=== PATIENT | female | born 1945 | race Caucasian/White ===

== ENCOUNTER 2018-03-19 14:22 | Emergency (ER) | payer OTHER, MEDICARE ==
[2018-03-19 15:00] LABS: ABSOLUTE EOSINOPHILS # (AUTO) 0.2 10^3/uL (0.0-0.6); ABSOLUTE LYMPHOCYTES (AUTO) 1.7 10^3/uL (0.5-4.7); ABSOLUTE MONOCYTES (AUTO) 0.3 10^3/uL (0.1-1.4); ABSOLUTE NEUT (AUTO) 2.7 10^3/uL (1.7-8.2); BASOPHILS % (AUTO) 0.6 % (0-2); EOSINOPHILS % (AUTO) 4.7 % (0-6); HEMATOCRIT 36.9 % (36.0-47.0); HEMOGLOBIN 12.5 g/dL (12.0-15.5); LYMPHOCYTES % (AUTO) 33.3 % (13-45); MEAN CORPUSCULAR HEMOGLOBIN 31.5 pg (27.0-33.4); MEAN CORPUSCULAR HGB CONC 33.9 g/dL (32.0-36.0); MEAN CORPUSCULAR VOLUME 93 fl (80-97); MONOCYTES % (AUTO) 6.8 % (3-13); PLATELET COUNT 175 10^3/uL (150-450); RED BLOOD COUNT 3.98 10^6/uL (3.72-5.28); RED CELL DISTRIBUTION WIDTH 15.6 % (11.5-14.0); SEGMENTED NEUTROPHILS % (AUTO) 54.6 % (42-78); TOTAL CELLS COUNTED % (AUTO) 100 %
--- NOTE | 2018-03-19 15:45 | RADIOLOGY REPORT (SQ) ---
EXAM DESCRIPTION: CHEST SINGLE VIEW COMPLETED DATE/TIME: 03/19/2018 3:13 pm REASON FOR STUDY: sob COMPARISON: None. NUMBER OF VIEWS: One view. TECHNIQUE: Single frontal radiographic view of the chest acquired. LIMITATIONS: None. FINDINGS: LUNGS AND PLEURA: No opacities, masses or pneumothorax. No pleural effusion. MEDIASTINUM AND HILAR STRUCTURES: No masses. Contour normal. HEART AND VASCULAR STRUCTURES: Heart enlarged without failure. Normal vasculature. BONES: No acute findings. HARDWARE: None in the chest. OTHER: No other significant finding. IMPRESSION: HEART ENLARGED WITHOUT FAILURE. NO OTHER SIGNIFICANT RADIOGRAPHIC FINDING IN THE CHEST. TECHNICAL DOCUMENTATION: JOB ID: [id number] [employer]- All Rights Reserved Reading location - IP/workstation name: [email or web address]
[2018-03-19 16:06] LABS: ALANINE AMINOTRANSFERASE 14 U/L (9-52); ALBUMIN 3.7 g/dL (3.5-5.0); ALKALINE PHOSPHATASE 61 U/L (38-126); ANION GAP 7 (5-19); ASPARTATE AMINO TRANSFERASE 30 U/L (14-36); BILIRUBIN,DIRECT 0.4 mg/dL (0.0-0.4); BLOOD UREA NITROGEN 13 mg/dL (7-20); CALCIUM 9.2 mg/dL (8.4-10.2); CARBON DIOXIDE 24 mmol/L (22-30); CHLORIDE 111 mmol/L (98-107); CREATINE KINASE 85 U/L (30-135); GLUCOSE 73 mg/dL (75-110); POTASSIUM 3.9 mmol/L (3.6-5.0); SODIUM 142.2 mmol/L (137-145); TOTAL PROTEIN 6.2 g/dL (6.3-8.2)
[2018-03-19 16:18] LABS: CREATINE KINASE MB 0.97 ng/mL (<4.55); TROPONIN I 0.029 ng/mL
[2018-03-19] MEDS ORDERED: FUROSEMIDE 20 MG TABLET PO ONE (17:55)
--- NOTE | 2018-03-19 18:00 | ER Document Report ---
ED General - General Chief Complaint: Breathing Difficulty Stated Complaint: SHORTNESS OF BREATH Time Seen by Provider: 03/19/18 14:59 - HPI Patient complains to provider of: Difficulty breathing Notes: Patient coming in for progressive shortness of breath ongoing for the last 4-5 days. Patient states dyspnea on exertion. Patient has a history of atrial fibrillation along with hypercholesterolemia diabetes hypothyroidism and hypertension. Patient is currently on Cardizem Protonix Celexa Eliquis Glucotrol Lipitor Normodyne and Synthroid. Patient does state has a history of congestive heart failure in the past however is currently not on any diuretics. Patient states swelling in her legs and her feet denies any recent travel patient states no fevers at home scant production of the cough clear to light green. Patient states compliance with her Cardizem states went to her previous doctor was given a prescription for Cardizem however states that the long- acting Cardizem is not available around her area living therefore is been taking Cardizem twice a day. Patient states some intermittent palpitations as well. Upon my evaluation patient says no hypoxia with respiratory rates approximately 22 no signs of any obvious distress along with A. fib on monitorrate controlled. - Related Data Allergies/Adverse Reactions: Sulfa (Sulfonamide Antibiotics) Allergy (Verified 03/19/18 14:34) Past Medical History - Social History Smoking Status: Never Smoker Frequency of alcohol use: None Drug Abuse: None Family History: Reviewed & Not Pertinent Patient has suicidal ideation: No Patient has homicidal ideation: No - Past Medical History Cardiac Medical History: Reports: Hx Atrial Fibrillation, Hx Hypercholesterolemia, Hx Hypertension Endocrine Medical History: Reports: Hx Diabetes Mellitus Type 2 Renal/ Medical History: Denies: Hx Peritoneal Dialysis GI Medical History: Reports: Hx Gastroesophageal Reflux Disease Psychiatric Medical History: Comment Only: Hx Depression - anxiety Past Surgical History: Reports: Hx Cholecystectomy, Hx Hysterectomy, Hx Nose Surgery - biopsy Review of Systems - Review of Systems Constitutional: No symptoms reported EENT: No symptoms reported Cardiovascular: Other - Dyspnea on exertion Respiratory: No symptoms reported Gastrointestinal: No symptoms reported Genitourinary: No symptoms reported Female Genitourinary: No symptoms reported Musculoskeletal: No symptoms reported Skin: No symptoms reported Hematologic/Lymphatic: No symptoms reported Neurological/Psychological: No symptoms reported -: Yes All other systems reviewed and negative Physical Exam - Vital signs Vitals: Resp Pulse Ox 22 H 95 03/19/18 14:29 03/19/18 14:29 Interpretation: Normal - General General appearance: Appears well, Alert - HEENT Head: Normocephalic, Atraumatic Eyes: Normal Pupils: PERRL Neck: Normal Notes: No JVD no hepatojugular reflux - Respiratory Respiratory status: No respiratory distress Chest status: Nontender Breath sounds: Normal Chest palpation: Normal - Cardiovascular Rhythm: Irregularly irregular Heart sounds: Normal auscultation Murmur: No - Abdominal Inspection: Normal Distension: No distension Bowel sounds: Normal Tenderness: Nontender Organomegaly: No organomegaly - Back Back: Normal, Nontender - Extremities General upper extremity: Normal inspection, Nontender, Normal color, Normal ROM , Normal temperature General lower extremity: Normal inspection, Nontender, Edema - 1+, Normal color , Normal ROM, Normal temperature, Normal weight bearing. No: Tayler's sign - Neurological Neuro grossly intact: Yes Cognition: Normal Orientation: AAOx4 Collette Coma Scale Eye Opening: Spontaneous Collette Coma Scale Verbal: Oriented Kirksey Coma Scale Motor: Obeys Commands Collette Coma Scale Total: 15 Speech: Normal Motor strength normal: LUE, RUE, LLE, RLE Sensory: Normal - Psychological Associated symptoms: Normal affect, Normal mood - Skin Skin Temperature: Warm Skin Moisture: Dry Skin Color: Normal Course - Re-evaluation Re-evalutation: 03/19/18 18:52 Patient coming in for evaluation of dyspnea on exertion. BNP was ordered which is elevated however we do not have any BMP to compare to. Patient's evaluation does not show any signs of overt CHF no fluid overload on chest x-ray. Patient has no JVD or possibility patient may be slightly fluid overloaded multiple questions as far as trying to find out the patient has gained weight in the last few days were unsuccessful patient does admit to swelling in her legs. At this time we will treat for a slight CHF exacerbation EKG troponins were otherwise negative no other critical pathology seen patient was able to ambulate without any signs of hypoxia. Patient was given a dose of Lasix here 20 mg recommend follow-up with primary care physician continue home medications. - Vital Signs Vital signs: Temp Pulse Resp BP Pulse Ox 98.0 F 28 H 120/88 H 96 03/19/18 18:06 03/19/18 18:06 03/19/18 18:06 03/19/18 18:06 - Laboratory Result Diagrams: 03/19/18 13:45 03/19/18 15:27 Laboratory results interpreted by me: 03/19/18 03/19/18 03/19/18 13:45 15:27 15:27 RDW 15.6 H Chloride 111 H Glucose 73 L Magnesium 1.4 L NT-Pro-B Natriuret Pep 63616 H Total Protein 6.2 L Discharge - Discharge Clinical Impression: History of atrial fibrillation, History of CHF (congestive heart failure) Dyspnea Qualifiers: Dyspnea type: unspecified Qualified Code(s): R06.00 - Dyspnea, unspecified Condition: Good Disposition: HOME, SELF-CARE Instructions: Congestive Heart Failure ([facility]), Dyspnea, Nonspecific ([facility]), Family Physicians / Practices, Lasix Additional Instructions: Chest x-ray today does not show any signs of congestive heart failure there is some slight swelling of her legs and they believe he may be slightly fluid overloaded or have excess fluid within your body that is causing her dyspnea. I recommend treatment course of Lasix for the next few days. I recommend following up with on the primary care physicians provided return to ER if symptoms worsen or if you develop a fever. Take medication as prescribed continue all your home medications. Prescriptions: Furosemide [Lasix 20 mg Tablet] 20 mg PO QAM #3 tablet Forms: Return to Work Referrals: SURINDER BONDS MD [COMMUNITY BASED STAFF] - Follow up as needed
[2018-03-19 18:17] VITALS: BP 120/88
--- NOTE | 2018-03-21 00:50 | EKG REPORT ---
SEVERITY:- ABNORMAL ECG - ATRIAL FIBRILLATION BORDERLINE R WAVE PROGRESSION, ANTERIOR LEADS NONSPECIFIC T ABNORMALITIES, LATERAL LEADS : Confirmed by: Emma Scott MD 21-Mar-2018 00:49:45
== END 2018-03-19 18:17 | disposition home or self-care (01) ==
LOC: ER 14:22
DX: R06.00 Dyspnea, unspecified (principal); I11.0 Hypertensive heart disease with heart failure; I50.9 Heart failure, unspecified; I48.91 Unspecified atrial fibrillation; E78.00 Pure hypercholesterolemia, unspecified; E11.9 Type 2 diabetes mellitus without complications; Z79.01 Long term (current) use of anticoagulants; Z79.899 Other long term (current) drug therapy
CPT/HCPCS: 36415; 71045; 80053; 82550; 82553; 83735; 83880; 84484; 85025; 93005; 93010; 99285